=== PATIENT | female | born 1985 | race Caucasian/White ===

== ENCOUNTER → 2024-12-02 15:07 | Outpatient (BNVA) | payer MEDICAID, SELFPAY | PROVIDERS: Visit Provider Family Medicine | DX: Z13.6 Encounter for screening for cardiovascular disorders (principal); Z13.1 Encounter for screening for diabetes mellitus; R42 Dizziness and giddiness; G43.709 Chronic migraine without aura, not intractable, without status migrainosus; Z86.2 Personal history of diseases of the blood and blood-forming organs and certain disorders involving the immune mechanism | CPT/HCPCS: 80053; 80061; 83540; 85025 ==